=== PATIENT | female | born 1975 | race Caucasian/White ===

== ENCOUNTER → 2017-04-02 | Outpatient (CLI) | payer MEDICARE, OTHER ==
[~2017-04-02] MED LIST: BACLOFEN PO; CALC-134 PO; COLACE PO; HYDR-305 PO; IRON PO; NAPR-58 PO; NITR100C PO; PERCT PO
[2017-04-02 13:22] VITALS: BP 122/77
== END | disposition home or self-care (01) ==
LOC: SRCNTR 13:14
PROVIDERS: ATTEND Internal Medicine
DX: J90 Pleural effusion, not elsewhere classified (principal); G82.50 Quadriplegia, unspecified; V89.2XXD Person injured in unspecified motor-vehicle accident, traffic, subsequent encounter; Z86.718 Personal history of other venous thrombosis and embolism; Z87.01 Personal history of pneumonia (recurrent); Z98.1 Arthrodesis status
CPT/HCPCS: G0463

== ENCOUNTER → 2017-05-28 | Outpatient (CLI) | payer MEDICARE, OTHER ==
[2017-05-28 13:05] VITALS: BP 133/77
== END | disposition home or self-care (01) ==
LOC: SRCNTR 12:55
PROVIDERS: ATTEND Internal Medicine
DX: J18.9 Pneumonia, unspecified organism (principal); J91.8 Pleural effusion in other conditions classified elsewhere; G82.50 Quadriplegia, unspecified; V89.2XXD Person injured in unspecified motor-vehicle accident, traffic, subsequent encounter; Z86.718 Personal history of other venous thrombosis and embolism
CPT/HCPCS: G0463

== ENCOUNTER → 2017-11-05 | Outpatient (CLI) | payer MEDICARE, OTHER ==
[2017-11-05 12:13] VITALS: BP 133/83
== END | disposition home or self-care (01) ==
LOC: SRCNTR 11:56
PROVIDERS: ATTEND Internal Medicine
DX: J18.9 Pneumonia, unspecified organism (principal); J90 Pleural effusion, not elsewhere classified; G82.50 Quadriplegia, unspecified; Z86.718 Personal history of other venous thrombosis and embolism
CPT/HCPCS: G0463

== ENCOUNTER → 2018-03-10 | Outpatient (CLI) | payer MEDICARE, OTHER ==
[2018-03-10 13:34] VITALS: BP 113/74
== END | disposition home or self-care (01) ==
LOC: SRCNTR 13:12
PROVIDERS: ATTEND Internal Medicine
DX: J90 Pleural effusion, not elsewhere classified (principal); G82.50 Quadriplegia, unspecified; Z86.718 Personal history of other venous thrombosis and embolism
CPT/HCPCS: G0463

== ENCOUNTER → 2018-04-27 | Outpatient (CLI) | payer MEDICARE, OTHER ==
[2018-04-27 13:43] VITALS: BP 110/69
== END | disposition home or self-care (01) ==
LOC: SRCNTR 13:36
PROVIDERS: ATTEND Internal Medicine
DX: J90 Pleural effusion, not elsewhere classified (principal); G82.50 Quadriplegia, unspecified; Z86.718 Personal history of other venous thrombosis and embolism; V89.2XXD Person injured in unspecified motor-vehicle accident, traffic, subsequent encounter
CPT/HCPCS: G0463

== ENCOUNTER → 2018-08-12 | Outpatient (CLI) | payer MEDICARE, OTHER ==
[2018-08-12 10:00] VITALS: BP 108/66
== END | disposition home or self-care (01) ==
LOC: SRCNTR 09:51
PROVIDERS: ATTEND Internal Medicine
DX: J90 Pleural effusion, not elsewhere classified (principal); G82.20 Paraplegia, unspecified; Z86.718 Personal history of other venous thrombosis and embolism; V89.2XXA Person injured in unspecified motor-vehicle accident, traffic, initial encounter; Y93.89 Activity, other specified; Y92.89 Other specified places as the place of occurrence of the external cause; Y99.8 Other external cause status
CPT/HCPCS: G0463

== ENCOUNTER → 2018-12-29 | Outpatient (CLI) | payer MEDICARE, OTHER ==
[~2018-12-29] MED LIST changes: -HYDR-305 PO; +HYDR-4455 PO
[2018-12-29 10:46] VITALS: BP 120/56
== END | disposition home or self-care (01) ==
LOC: SRCNTR 10:45
PROVIDERS: ATTEND Internal Medicine
DX: J18.9 Pneumonia, unspecified organism (principal); J90 Pleural effusion, not elsewhere classified
CPT/HCPCS: G0463

== ENCOUNTER → 2021-03-28 | Outpatient (CLI) | payer MEDICARE, OTHER ==
[~2021-03-28] MED LIST changes: +NAPR-1025 PO; -NAPR-58 PO
[2021-03-28 12:27] VITALS: BP 112/63
== END | disposition home or self-care (01) ==
LOC: SRCNTR 10:51
PROVIDERS: ATTEND Internal Medicine
DX: J90 Pleural effusion, not elsewhere classified (principal); G82.20 Paraplegia, unspecified; Z98.890 Other specified postprocedural states; Z86.718 Personal history of other venous thrombosis and embolism; Z79.899 Other long term (current) drug therapy
CPT/HCPCS: G0463; Z7500

== ENCOUNTER → 2021-03-28 | Outpatient (CLI) | payer MEDICARE, OTHER | END | disposition home or self-care (01) | LOC: RADPV 12:27 | PROVIDERS: ATTEND Internal Medicine | DX: J90 Pleural effusion, not elsewhere classified (principal); M95.8 Other specified acquired deformities of musculoskeletal system | CPT/HCPCS: 71046 ==

== ENCOUNTER → 2021-04-12 | Outpatient (CLI) | payer MEDICARE, OTHER ==
[2021-04-18 11:27] VITALS: BP 101/58
== END | disposition home or self-care (01) ==
LOC: SRCNTR 11:43
PROVIDERS: ATTEND Internal Medicine
DX: J90 Pleural effusion, not elsewhere classified (principal); G82.20 Paraplegia, unspecified; V98.8XXA Other specified transport accidents, initial encounter; Y93.89 Activity, other specified; Y92.89 Other specified places as the place of occurrence of the external cause; Y99.8 Other external cause status
CPT/HCPCS: G0463

== ENCOUNTER 2021-06-26 12:37 | Emergency (ER) | payer MEDICARE, OTHER | END 2021-06-26 13:34 | disposition left against medical advice (07) | LOC: EMS 12:39 | DX: Z00.00 Encounter for general adult medical examination without abnormal findings (principal); Z53.21 Procedure and treatment not carried out due to patient leaving prior to being seen by health care provider ==

== ENCOUNTER → 2021-06-26 | Outpatient (CLI) | payer MEDICARE, OTHER | END | disposition home or self-care (01) | LOC: RADPV 13:10 | PROVIDERS: ATTEND Internal Medicine | DX: Z13.83 Encounter for screening for respiratory disorder NEC (principal); R06.02 Shortness of breath | CPT/HCPCS: 71046 ==

== ENCOUNTER → 2021-06-26 | Outpatient (CLI) | payer MEDICARE, OTHER ==
[2021-06-26 15:47] VITALS: BP 106/60
== END | disposition home or self-care (01) ==
LOC: SRCNTR 10:29
PROVIDERS: ATTEND Internal Medicine
DX: G82.20 Paraplegia, unspecified (principal); Z86.718 Personal history of other venous thrombosis and embolism; Z98.890 Other specified postprocedural states; Z79.899 Other long term (current) drug therapy; Z88.1 Allergy status to other antibiotic agents
CPT/HCPCS: G0463

== ENCOUNTER → 2021-07-10 | Outpatient (CLI) | payer MEDICARE, OTHER ==
[2021-07-10 12:19] VITALS: BP 121/73
== END | disposition home or self-care (01) ==
LOC: SRCNTR 11:53
PROVIDERS: ATTEND Internal Medicine
DX: J90 Pleural effusion, not elsewhere classified (principal); G82.20 Paraplegia, unspecified; Z86.718 Personal history of other venous thrombosis and embolism
CPT/HCPCS: G0463

== ENCOUNTER → 2021-10-09 | Outpatient (CLI) | payer MEDICARE, OTHER | END | disposition home or self-care (01) | LOC: RADPV 13:49 | PROVIDERS: ATTEND Internal Medicine | DX: Z12.13 Encounter for screening for malignant neoplasm of small intestine (principal); J90 Pleural effusion, not elsewhere classified; J18.9 Pneumonia, unspecified organism | CPT/HCPCS: 71046 ==

== ENCOUNTER → 2021-10-18 | Outpatient (CLI) | payer MEDICARE, OTHER ==
[2021-10-18 12:08] VITALS: BP 118/68
== END | disposition home or self-care (01) ==
LOC: SRCNTR 11:45
PROVIDERS: ATTEND Internal Medicine
DX: J90 Pleural effusion, not elsewhere classified (principal); G82.20 Paraplegia, unspecified
CPT/HCPCS: G0463

== ENCOUNTER → 2022-10-22 | Outpatient (CLI) | payer MEDICARE, OTHER ==
[2022-10-22 12:05] VITALS: BP 102/62
== END | disposition home or self-care (01) ==
LOC: SRCNTR 11:52
PROVIDERS: ATTEND Internal Medicine
DX: Z09 Encounter for follow-up examination after completed treatment for conditions other than malignant neoplasm (principal); J90 Pleural effusion, not elsewhere classified; G82.20 Paraplegia, unspecified; Z86.718 Personal history of other venous thrombosis and embolism; V89.2XXD Person injured in unspecified motor-vehicle accident, traffic, subsequent encounter
CPT/HCPCS: G0463

== ENCOUNTER → 2022-10-22 | Outpatient (CLI) | payer MEDICARE, OTHER ==
[2022-10-22 13:45] LABS: BASOPHILS % (AUTO) 0.4 % (0.0-2.0); EOSINOPHILS % (AUTO) 3.3 % (1.0-6.0); HEMATOCRIT 27.8 % (36-46); LYMPHOCYTES # (AUTO) 1.2 K/uL (1.0-4.8); LYMPHOCYTES % (AUTO) 22.3 % (22.0-44.0); MEAN CORPUSCULAR HEMOGLOBIN 27.4 pg (26.0-34.0); MEAN CORPUSCULAR HGB CONC 32.3 G/dL (31.0-37.0); MEAN CORPUSCULAR VOLUME 85 fL (80-100); MONOCYTES # (AUTO) 0.4 K/uL (0.1-1.0); MONOCYTES % (AUTO) 8.1 % (2.0-9.0); NEUTROPHILS # (AUTO) 3.6 K/uL (1.8-7.7); NEUTROPHILS % (AUTO) 65.9 % (40.0-70.0); PLATELET COUNT (AUTO) 416 K/uL (150-450); RED BLOOD CELL COUNT(AUTO) 3.27 MIL/uL (4.00-5.20); RED CELL DISTRIBUTION WIDTH 14.8 % (11.5-14.5)
[2022-10-22 13:57] LABS: ALANINE AMINOTRANSFERASE 34 U/L (12-78); ALBUMIN 2.7 g/dL (3.4-5.0); ALKALINE PHOSPHATASE 219 U/L (46-116); ANION GAP 4 mmol/L (8-16); ASPARTATE AMINOTRANSFERASE 28 U/L (15-37); BILIRUBIN,TOTAL 0.2 mg/dL (0.1-1.0); CALCIUM, TOTAL 9.1 mg/dL (8.8-10.5); CARBON DIOXIDE 31 mmol/L (22-29); CHLORIDE 103 mmol/L (98-107); CREATININE 0.45 mg/dL (0.60-1.30); GLUCOSE,RANDOM 92 mg/dL (70-110); POTASSIUM 4.5 mmol/L (3.5-5.1); SODIUM SERUM 138 mmol/L (136-145); TOTAL PROTEIN, SERUM 7.8 g/dL (6.4-8.2); UREA NITROGEN, BLOOD 20 mg/dL (7-18)
[2022-10-22 14:02] LABS: GLOMERULAR FILTR. RATE CALC > 60 mL/min (>60)
== END | disposition home or self-care (01) ==
LOC: MSR 13:09
PROVIDERS: ATTEND Internal Medicine
DX: D65 Disseminated intravascular coagulation [defibrination syndrome] (principal); J91.8 Pleural effusion in other conditions classified elsewhere; M47.815 Spondylosis without myelopathy or radiculopathy, thoracolumbar region; Z01.89 Encounter for other specified special examinations
CPT/HCPCS: 71046; 80053; 82248; 85025; 36415-L1; 36415-TC

== ENCOUNTER → 2023-07-23 | Outpatient (CLI) | payer MEDICARE, OTHER | END | disposition home or self-care (01) | LOC: SRCNTR 10:07 | PROVIDERS: ATTEND Internal Medicine | DX: G82.20 Paraplegia, unspecified (principal); Z87.09 Personal history of other diseases of the respiratory system; V89.2XXA Person injured in unspecified motor-vehicle accident, traffic, initial encounter; Y93.89 Activity, other specified; Y92.89 Other specified places as the place of occurrence of the external cause; Y99.8 Other external cause status | CPT/HCPCS: Q3014 ==

== ENCOUNTER → 2023-12-02 | Outpatient (CLI) | payer MEDICARE, OTHER ==
[~2023-12-02] VITALS: Ht 160 cm; Wt 143.0 kg
[2023-12-02 10:52] VITALS: BP 132/76; PULSE 88; RESP 16; TEMP 98; O2SAT 97
== END | disposition home or self-care (01) ==
LOC: SRCNTR 10:43
PROVIDERS: ATTEND Internal Medicine
DX: J90 Pleural effusion, not elsewhere classified (principal); G82.20 Paraplegia, unspecified; Z86.718 Personal history of other venous thrombosis and embolism
CPT/HCPCS: G0463